=== PATIENT | male | born 1955 | race Caucasian/White ===

== ENCOUNTER 2021-12-30 16:28 | Outpatient (REF) | payer OTHER, SELFPAY ==
[2021-12-30 16:36] LABS: MANUAL DIFF FLAG NO
[2021-12-30 16:58] LABS: Basophils Absolute Auto 0.1 X10*3/uL (0.0-0.2); Basophils Percent Auto 0.8 % (0-2); Eosinophils Absolute Auto 0.3 X10*3/uL (0.0-0.4); Eosinophils Percent Auto 3.5 % (0-4); Hematocrit 45.6 % (42.0-52.0); Hemoglobin 15.2 g/dl (14.0-18.0); Imm Gran Abs Auto 0.02 X10*3/uL (0.00-0.03); Imm Gran Pct Auto 0.3 % (0.0-0.4); Lymphocytes Absolute Auto 1.5 X10*3/uL (1.2-4.9); Lymphocytes Percent Auto 21.2 % (20-40); Mean Corpuscular HGB Conc 33.3 g/dl (31.0-36.0); Mean Corpuscular Hemoglobin 31.7 pg (27.0-33.0); Mean Corpuscular Volume 95.2 fL (80.0-98.0); Mean Platelet Volume 10.6 fL (9.4-12.4); Monocytes Absolute Auto 0.6 X10*3/uL (0.1-1.2); Monocytes Percent Auto 8.6 % (2-11); Neutrophils Absolute Auto 4.7 x10*3/uL (2.0-8.3); Neutrophils Percent Auto 65.6 % (45-73); Platelet Count 277 X10*3/uL (160-400); Red Blood Count 4.79 X10*6/uL (4.60-5.80); Red Cell Distribution Width 12.7 % (11.0-16.0); White Blood Count 7.1 X10*3/uL (4.8-10.8)
[2021-12-30 17:28] LABS: Alanine Aminotransferase 14 U/L (0-40); Albumin Level 4.3 g/dL (3.5-5.0); Alkaline Phosphatase 59 U/L (39-117); Anion Gap 13 (12-20); Aspartate Amino Transferase 20 U/L (5-37); Bilirubin Total 0.7 mg/dL (0.0-1.0); Blood Urea Nitrogen 12 mg/dL (9-16); Calcium 9.1 mg/dL (8.4-10.2); Carbon Dioxide 25 mmol/L (22-29); Chloride 106 mmol/L (96-108); Cholesterol 211 mg/dL; Estimated Glomerular Filt Rate > 60; Glucose Random 107 mg/dL (60-115); HDL Cholesterol 56 mg/dL; LDL Cholesterol Calculated 135 mg/dl; Sodium 140 mmol/L (135-145); Total Protein 7.3 g/dL (6.5-8.0); Triglycerides 101 mg/dL
[2021-12-30 17:51] LABS: PSA,Total (Free>4and<10) 0.74 ng/mL (0.00-4.00)
[2021-12-30 20:53] LABS: Reflex LDLD? No
== END 2021-12-30 16:29 | disposition home or self-care (01) ==
LOC: HO.LNP 16:28
PROVIDERS: Visit Provider Internal Medicine
DX: Z12.5 Encounter for screening for malignant neoplasm of prostate (principal); R10.9 Unspecified abdominal pain; R31.9 Hematuria, unspecified
CPT/HCPCS: 80053; 80061; 84153; 85025

== ENCOUNTER 2022-02-27 08:30 | Outpatient (REF) | payer OTHER, MEDICARE, SELFPAY ==
--- NOTE | ~2022-02-27 | US_ITS ---
EXAMINATION: US ABDOMEN COMPLETE CLINICAL INFORMATION: Liver lesion. COMPARISON: None TECHNIQUE: Real-time imaging of the abdominal viscera. Technically limited study secondary to bowel gas and body habitus. FINDINGS: PANCREAS: Not well visualized due to bowel gas ABDOMINAL AORTA: The proximal and mid abdominal aorta are not well visualized due to bowel gas. The distal abdominal aorta is normal in caliber. INFERIOR VENA CAVA: Visualized portions are normal. LIVER: The liver is normal in size. The liver contour is normal. Liver echotexture is increased. No focal hepatic lesion. There is no intrahepatic biliary duct dilatation seen. GALLBLADDER: The gallbladder is physiologically distended. Multiple gallstones are present. No evidence of gallbladder wall thickening or pericholecystic fluid. COMMON BILE DUCT: Normal in caliber measuring 0.3 cm in diameter. RIGHT KIDNEY: Normal. No hydronephrosis. No renal calculi or focal parenchymal lesions. The kidney measures 11.7 cm in maximum dimension. LEFT KIDNEY: There is a cyst exophytic to the upper pole measuring 3.7 x 2.7 x 3.4 cm. This is some internal echoes that are difficult to clear. This may be artifactual due to body habitus. No hydronephrosis or renal calculi. The kidney measures 12.8 cm in maximum dimension. SPLEEN: Normal. The spleen measures 13.0 cm in maximum dimension. FREE FLUID: None. US/US abdomen complete IMPRESSION: Limited exam. No liver lesion appreciated. Liver echotexture is slightly increased. Gallstones. Left renal cyst. Pancreas and aorta not well visualized.
== END 2022-02-27 08:31 | disposition home or self-care (01) ==
LOC: HO.HMGCX 08:30
PROVIDERS: PCP Internal Medicine; Visit Provider Internal Medicine
DX: K76.9 Liver disease, unspecified (principal)
CPT/HCPCS: 76700

== ENCOUNTER 2023-01-19 11:56 | Outpatient (REF) | payer OTHER, MEDICARE, SELFPAY ==
[2023-01-19 11:58] LABS: MANUAL DIFF FLAG NO
[2023-01-19 12:20] LABS: Basophils Absolute Auto 0.1 X10*3/uL (0.0-0.2); Basophils Percent Auto 0.8 % (0-2); Eosinophils Absolute Auto 0.4 X10*3/uL (0.0-0.4); Hematocrit 44.8 % (42.0-52.0); Hemoglobin 14.8 g/dl (14.0-18.0); Imm Gran Abs Auto 0.03 X10*3/uL (0.00-0.03); Imm Gran Pct Auto 0.5 % (0.0-0.4); Lymphocytes Absolute Auto 1.9 X10*3/uL (1.2-4.9); Lymphocytes Percent Auto 28.9 % (20-40); Mean Platelet Volume 10.9 fL (9.4-12.4); Monocytes Absolute Auto 0.6 X10*3/uL (0.1-1.2); Monocytes Percent Auto 9.2 % (2-11); Neutrophils Absolute Auto 3.6 x10*3/uL (2.0-8.3); Neutrophils Percent Auto 54.6 % (45-73); Platelet Count 249 X10*3/uL (160-400); Red Blood Count 4.62 X10*6/uL (4.60-5.80); Red Cell Distribution Width 12.5 % (11.0-16.0); White Blood Count 6.7 X10*3/uL (4.8-10.8)
[2023-01-19 12:30] LABS: Appearance Urine Clear; Color Urine Yellow; Glucose Urine UA Negative (Negative); Leukocyte Esterase Urine Negative (Negative); Nitrite Urine Negative (Negative); Urine Blood Negative (Negative); Urine Ketones Negative (Negative); Urine Protein Negative (Neg-Trace)
[2023-01-19 12:39] LABS: Bacteria Urine None Seen (None Seen); Hyaline Casts Urine 0-2 /LPF (0-2); RBC Urine 0-2 /HPF (0-2); Squamous Epithelial Cell Urine 0-2 /HPF (0-2); WBC Urine 0-5 /HPF (0-5)
[2023-01-19 13:01] LABS: Alanine Aminotransferase 13 U/L (0-40); Alkaline Phosphatase 55 U/L (39-117); Anion Gap 11 (12-20); Aspartate Amino Transferase 20 U/L (5-37); Bilirubin Total 0.7 mg/dL (0.0-1.0); Blood Urea Nitrogen 14 mg/dL (9-16); Calcium 9.4 mg/dL (8.4-10.2); Carbon Dioxide 25 mmol/L (22-29); Chloride 107 mmol/L (96-108); Cholesterol 169 mg/dL; Estimated Glomerular Filt Rate > 60; Glucose Fasting 105 mg/dL (60-99); HDL Cholesterol 49 mg/dL; LDL Cholesterol Calculated 106 mg/dl; Potassium 3.7 mmol/L (3.3-5.1); Sodium 139 mmol/L (135-145); Triglycerides 72 mg/dL
[2023-01-19 13:17] LABS: PSA,Total (Free>4and<10) 0.77 ng/mL (0.00-4.00)
== END 2023-01-19 11:57 | disposition home or self-care (01) ==
LOC: HO.LNP 11:56
PROVIDERS: Visit Provider Internal Medicine
DX: Z00.00 Encounter for general adult medical examination without abnormal findings (principal); Z12.5 Encounter for screening for malignant neoplasm of prostate; N40.0 Benign prostatic hyperplasia without lower urinary tract symptoms; K76.9 Liver disease, unspecified
CPT/HCPCS: 80053; 80061; 81001; 84153; 85025

== ENCOUNTER 2023-07-29 15:40 | Outpatient (REF) | payer OTHER, MEDICARE, SELFPAY ==
--- NOTE | ~2023-07-29 | XR_ITS ---
EXAMINATION: XR CHEST 2 VIEWS CLINICAL INFORMATION: Dysphonia. COMPARISON: None. TECHNIQUE: Frontal and lateral views of the chest were obtained. FINDINGS: The heart, great vessels, pulmonary vasculature and mediastinum are normal. The thoracic aorta is tortuous. The lungs show no focal infiltrate, effusion or pneumothorax. There is no acute osseous abnormality. XR/XR chest 2V IMPRESSION: No active cardiopulmonary disease.
== END 2023-07-29 15:41 | disposition home or self-care (01) ==
LOC: HO.XRAY 15:40
PROVIDERS: PCP Internal Medicine; Visit Provider Internal Medicine
DX: R49.0 Dysphonia (principal)
CPT/HCPCS: 71046

== ENCOUNTER 2023-09-03 15:54 | Outpatient (REF) | payer OTHER, MEDICARE, SELFPAY ==
[2023-09-03 16:13] LABS: Blood Urea Nitrogen 12 mg/dL (9-16); Estimated Glomerular Filt Rate > 60
== END 2023-09-03 15:55 | disposition home or self-care (01) ==
LOC: HO.LNP 15:54
PROVIDERS: Visit Provider Internal Medicine
DX: Z01.812 Encounter for preprocedural laboratory examination (principal)
CPT/HCPCS: 82565; 84520

== ENCOUNTER 2024-01-21 10:30 | Outpatient (REF) | payer OTHER, MEDICARE, SELFPAY ==
[2024-01-21 10:32] LABS: MANUAL DIFF FLAG NO
[2024-01-21 10:42] LABS: Basophils Absolute Auto 0.1 X10*3/uL (0.0-0.2); Eosinophils Absolute Auto 0.3 X10*3/uL (0.0-0.4); Eosinophils Percent Auto 4.3 % (0-4); Hematocrit 45.2 % (42.0-52.0); Hemoglobin 15.4 g/dl (14.0-18.0); Imm Gran Abs Auto 0.02 X10*3/uL (0.00-0.03); Imm Gran Pct Auto 0.3 % (0.0-0.4); Lymphocytes Absolute Auto 1.9 X10*3/uL (1.2-4.9); Lymphocytes Percent Auto 28.6 % (20-40); Mean Corpuscular HGB Conc 34.1 g/dl (31.0-36.0); Mean Corpuscular Volume 96.8 fL (80.0-98.0); Mean Platelet Volume 10.8 fL (9.4-12.4); Monocytes Absolute Auto 0.6 X10*3/uL (0.1-1.2); Monocytes Percent Auto 8.6 % (2-11); Neutrophils Absolute Auto 3.8 x10*3/uL (2.0-8.3); Neutrophils Percent Auto 57.2 % (45-73); Platelet Count 269 X10*3/uL (160-400); Red Blood Count 4.67 X10*6/uL (4.60-5.80); Red Cell Distribution Width 12.6 % (11.0-16.0); White Blood Count 6.7 X10*3/uL (4.8-10.8)
[2024-01-21 10:43] LABS: Appearance Urine Clear; Color Urine Yellow; Glucose Urine UA Negative (Negative); Leukocyte Esterase Urine Negative (Negative); Nitrite Urine Negative (Negative); PH 5.5 (5.0-9.0); UMIC TRIGGER UACC YES; Urine Blood Moderate (2+) (Negative); Urine Ketones Negative (Negative); Urine Protein Negative (Neg-Trace)
[2024-01-21 10:45] LABS: Bacteria Urine None Seen (None Seen); Hyaline Casts Urine 0-2 /LPF (0-2); RBC Urine >20 /HPF (0-2); Squamous Epithelial Cell Urine 0-2 /HPF (0-2); WBC Urine 0-5 /HPF (0-5)
[2024-01-21 20:22] LABS: Alanine Aminotransferase 11 U/L (0-40); Albumin Level 4.3 g/dL (3.5-5.0); Alkaline Phosphatase 59 U/L (39-117); Anion Gap 15 (12-20); Aspartate Amino Transferase 21 U/L (5-37); Bilirubin Total 0.7 mg/dL (0.0-1.0); Blood Urea Nitrogen 15 mg/dL (9-16); Calcium 9.3 mg/dL (8.4-10.2); Carbon Dioxide 22 mmol/L (22-29); Chloride 108 mmol/L (96-108); Cholesterol 185 mg/dL (<200); Estimated Glomerular Filt Rate > 60; Glucose Fasting 100 mg/dL (60-99); HDL Cholesterol 51 mg/dL (>40); LDL Cholesterol Calculated 117 mg/dL (<100); Potassium 3.7 mmol/L (3.3-5.1); Sodium 141 mmol/L (135-145); Total Protein 7.1 g/dL (6.5-8.0); Triglycerides 87 mg/dL (<150)
[2024-01-22 01:58] LABS: PSA,Total (Free>4and<10) 0.86 ng/mL (0.00-4.00)
== END 2024-01-21 10:31 | disposition home or self-care (01) ==
LOC: HO.LNP 10:30
PROVIDERS: Visit Provider Internal Medicine
DX: Z00.00 Encounter for general adult medical examination without abnormal findings (principal); N40.0 Benign prostatic hyperplasia without lower urinary tract symptoms; K76.9 Liver disease, unspecified; Z12.5 Encounter for screening for malignant neoplasm of prostate
CPT/HCPCS: 80053; 80061; 81001; 84153; 85025

== ENCOUNTER 2024-01-31 09:49 | Outpatient (REF) | payer OTHER, MEDICARE, SELFPAY ==
--- NOTE | ~2024-01-31 | FL_ITS ---
EXAMINATION: XR FLUOROSCOPY UPPER GI WITH AIR CLINICAL INFORMATION: Reflux. Dysphagia. COMPARISON: None. TECHNIQUE: Fluoroscopic air contrast upper GI examination was performed utilizing standard techniques with thin and thick barium and effervescent granules. Numerous spot images were obtained. FINDINGS: Lateral cine images of the oropharynx and hypopharynx demonstrate normal swallow mechanism with normal epiglottic inversion and soft palate elevation. No tracheal penetration, glottic or subglottic aspiration identified. No nasopharyngeal reflux present. A small Zenker's diverticulum is present. There is moderate cricopharyngeal achalasia present. Dual and single contrast images of the esophagus demonstrate normal caliber, contour, and mucosal pattern. No mass, or ulcerations are identified. Esophageal peristalsis is mildly disorganized. There is mild to moderate smooth narrowing of the GE junction. A small to moderate-sized type I hiatal hernia is present. Gastroesophageal reflux is seen up to the midesophagus. Dual contrast and single contrast images of the stomach demonstrated a normal contour. The gastric rugal folds are mildly thickened appearance. There are multiple tiny foci of contrast pooling in the body of the stomach that may present small superficial aphthous ulcers. No masses are seen. Contrast freely passed into the gastric antrum and duodenal bulb without delay. Single and air-contrast images of the duodenal bulb demonstrate no abnormality. The duodenal sweep has a normal appearance, course, and mucosal fold appearance. The imaged proximal jejunum has a normal fold pattern and caliber. FLUOROSCOPY TIME: 3 minutes 22 seconds Number of Spot Images: 8 Number of Cine: 14 DOSE AREA PRODUCT: 3621 uGy-m2 (microgray-meter squared) FL/FL upper GI w air IMPRESSION: 1. Moderate cricopharyngeal achalasia. 2. Small Zenker's diverticulum. 3. Mildly disorganized esophageal peristalsis 4. Mild to moderate narrowing of the GE junction that may represent achalasia or a benign stricture. 5. Moderate-sized type I hiatal hernia with moderate gastroesophageal reflux. 6. Mildly thickened appearance the gastric rugal folds. In addition there are multiple tiny foci of contrast pooling in the body of the stomach. These findings are suggestive of erosive gastritis. Recommend correlation with EGD. This procedure was performed by Colt Garcia PA-C, and supervised by Dr. Martinez
== END 2024-01-31 09:50 | disposition home or self-care (01) ==
LOC: HO.XRAY 09:49
PROVIDERS: PCP Internal Medicine; Visit Provider Internal Medicine
DX: K21.9 Gastro-esophageal reflux disease without esophagitis (principal)
CPT/HCPCS: 74246

== ENCOUNTER → 2024-01-31 09:54 | Outpatient (BNV) | payer OTHER, MEDICARE, SELFPAY | PROVIDERS: PCP Internal Medicine; Visit Provider Physician Assistant Surgical | DX: R13.10 Dysphagia, unspecified (principal) | CPT/HCPCS: 74246 ==

== ENCOUNTER 2025-01-01 08:10 | Day surgery (SDC) | payer OTHER, SELFPAY ==
--- OUTSIDE RECORDS SUMMARY | 2024-11-30 11:07 | XMS_ITS ---
Author Organization Chad Kohli MD Address [address] [place], [place] [id number] Care Team Providers Care Technical Operations Specialist Name Role Phone Chad Kohli Primary Care [...] Problem Status W/U Status Risk Notes Problem [id number] Gastroesophageal reflux disease without esophagitis (K21.9) Active confirmed Vital Signs Blood pressure systolic 112 mm Hg 06/05/20 24 Blood pressure diastolic 60 mm Hg 024 Height 71 in 06/05/2024 Weight 266 lbs 06/05/2024 BMI 37.10 kg/m2 06/05/2024 Encounters Encounter Location Date Provider Diagnosis Chad Kohli MD [address] [place] [phone] 06/05/2024 Chad Kohli Gastroesophageal ref lux disease [...] Details Follow Up: 2 Months, Reason: Provider Name:hCad moore, 01/25/2025 07:00:00 AM, [address] [place] [address], [address], [phone], Provider Name:Chad moore, 02/01/2025 01:00:00 PM, [address] [place] [address], [place] [address], [place], [place], [phone], Progress Notes * FANNY NUNESDOB:1955 (69 yo M)Acc No.[id number]:06/05/2024 Progress Notes Patient:?FANNY NUNES Provider:?Chad Kohli MD :1955???Age:69 Y???Sex:Male Levy e:06/05/2024 Address: [address], [place] Subjective: * Chief Complaints: * ???3 month * HPI: ???Symptom(s):? patient is a 69 yo male here for 3 month follow uu visit, here for follow up of voice problems. * ROS:?General/Constitutional:?Denies?Chills.?Denies?Fatigue.?Denies?Fever.?Denies?Headache.?ENT:?Patient denies?decreased sense of smell , any loss of taste , sore throat.?Denies?Sore throat.?Respiratory:?Denies?Cough.?Denies?Shortness of breath at rest.?Denies?Shortness of breath with exertion.?Gastrointestinal:?Denies?Diarrhea.?Denies?Nausea.?Musculoskeletal:?Patient denies?muscle aches.?Peripheral Vascular:?Patient denies?red and blue toes.? * Medical History:? * Surgical History:? * Hospitalization/Major Diagno stic Procedure:? * Medications:?Not-Taking/PRNF luticasone Propionate 50 MCG/ACT Suspension 1 spray in [...] reviewed and reconciled with the patient * Allergies:?N.K.D.A.yes[Aller gies Verified] Objective: * Vitals:?Ht: 71, Wt:266, BMI: 37.10, BP:112/60. * Examination: ???General Examination: ?GENERAL APPEARANCE:?alert, well hydrated, in no distress , male.?HEAD:?normocephalic.?NECK/THYROID:?no thyroid nodules no palpable thyroglssal duct cyst.?SKIN:?good turgor.?HEART:?no murmurs, rubs, gallops , regular rate and rhythm.?LUNGS:?good air movement , clear to auscultation bilaterally.? Assessment: * Assessment: 1.?Gastroesophageal reflux d isease without esophagitis - K21.9 (Primary)?2.?Disorder of voice - R49.9? Plan: * Treatment: 2.?Disorder of voice? Notes: seems as though it may be related to reflux?? * Procedure Codes:? * Follow Up:?2 Months * * Sign off status: Completed true * Provider:?Chad Kohli MD Date:?1 08/06/2023 Generated for Kereni michael/Fatimah/eTransmitting on:?11/30/2024 11:07 AM EDT History and Physical Notes * [...]
[2024-12-28 14:21] VITALS: BMI 35.3
--- NOTE | 2024-12-29 10:54 | P.CONAN_ITS ---
Documented by User: Mayra Webb NP 12/29/24 10:55 HPI - Anesthesia Eval Consult details Narrative: 69yo M for Upper Endoscopy and Colonoscopy [facility] Past Medical History Medical History Gallstones Surgical History Surgical History Hx of tonsillectomy Social History Social History Are you a primary patient centered care specialist to a significant other at home: No Do you presently have visiting nurse or other home services: No Patient Tobacco Use Status: Former Tobacco user Use of substances other than those prescribed or required for medical reasons: No Have you been hit, kicked, punched, or otherwise hurt by someone within the past year? If so, by whom?: No Are you DNR?: No Advance Directives: No Advance Directives Information Provided: Yes Poor oral hygiene: No Meds Allergies Allergy/AdvReac Type Severity Reaction Status Date / Time mite-Dermatophagoides Allergy Unknown Verified 01/01/25 08:41 farinae, katey (dust mite - [place]) pollen extracts Allergy Unknown Verified 01/01/25 08:41 Home Medications ?Medication ?Instructions ?Recorded ?Confirmed ?Last Taken ?Type No Known Home Meds 12/28/24 12/28/24 Un known History Exam Height,Weight and Vital Signs: Height 6 ft Weight 117.934 kg Assessment and Plan Assessment Anesthesia Assessment: Chart Reviewed Documented by User: Tyrell Alves MD 01/01/25 09:58 [facility] Past Medical History Medical History Gallstones Functional capacity: independent ambulation Family History Family history of problems with anesthesia: No Surgical History Surgical History Hx of tonsillectomy History of Problems with Anesthesia: No Social History Social History Are you a primary patient centered care specialist to a significant other at home: No Do you presently have visiting nurse or other home services: No Patient Tobacco Use Status: Former Tobacco user Use of substances other than those prescribed or required for medical reasons: No Have you been hit, kicked, punched, or otherwise hurt by someone within the past year? If so, by whom?: No Are you DNR?: No Advance Directives: No Advance Directives Information Provided: Yes Poor oral hygiene: No Meds Allergies Allergy/AdvReac Type Severity Reaction Status Date / Time mite-Dermatophagoides Allergy Unknown Verified 01/01/25 08:41 farinae, katey (dust mite - [place]) pollen extracts Allergy Unknown Verified 01/01/25 08:41 Home Medications ?Medication ?Instructions ?Recorded ?Confirmed ?Last Taken ?Type No Known Home Meds 12/28/24 12/28/24 Un known History Exam Exam Date and Time: 01/01/2025 Airway TM Dist: >3cm Neck ROM: Full Loose/Missing/Broken Teeth: No Heart: rrr Lungs: cta Assessment and Plan Final Anesthetic Review Family History of Problems with Anesthesia: No History of Problems with Anesthesia: No NPO: Yes ASA Class: II Final Preanesthetic Review: No Changes in Pt Med Stat, Meds/Allgs Chart Reviewed, Consent Obtained/Reviewed and Anes Risks/Benef Reviewed Patient Risk: Low Procedure Risk: Low Anesthetic Plan Anesthetic Plan: MAC: Disposition: Standard PACU
[2025-01-01 08:46] VITALS: BP 110/71; PULSE 81; RESP 12; TEMP 36.6; O2SAT 97; BMI 34.4
[2025-01-01] MEDS: Lactated Ringers 1,000 ML 100 ML IVCONT (08:50)
[2025-01-01 11:05] VITALS: BP 116/80; PULSE 57; RESP 16; TEMP 36.1; O2SAT 96
--- NOTE | 2025-01-01 11:12 | P.BOP_ITS ---
Brief Operative Note Date of Service: 01/01/25 Pre-op diagnosis: GERD, Screening Post-op diagnosis: other (Hiatal hernia, GERD, Gastritis, Duodenitis, Colon polyps) Procedure: EGd with bx, Colonoscopy to the cecum and TI with hot snare polypectomy at 20cm, bx/removal of polyp at 15cm, and cold snare polypectomies at Transverse colon and 70cm Surgeon: Kelby Srivastava MD Was an Employee Representative used for this Procedure?: No Estimated blood loss (mL): 2.0 Pathology: other (A. Gastric antrum B. EG Junction at 35cm C. Transverse colon polyp D. Polyp at 70cm E. Polyp at 20cm F. Polyp at 15cm) Condition: stable Disposition: PACU
[2025-01-01 11:20] VITALS: BP 120/69; PULSE 56; RESP 16; TEMP 36.1; O2SAT 98
--- NOTE | 2025-01-01 11:48 | OP_ITS ---
DATE OF SERVICE: 01/01/2025 SURGEON: Kelby Srivastava MD INDICATIONS: The patient presents for evaluation of gastroesophageal reflux and colorectal cancer screening. Full consent obtained from him for both procedures, including risks of bleeding and perforation. PREOPERATIVE DIAGNOSIS: POSTOPERATIVE DIAGNOSIS: PROCEDURE PERFORMED: Esophagogastroduodenoscopy with biopsies, and colonoscopy to cecum with hot snare polypectomy, cold snare polypectomy x2, and biopsy removal of polyp. ESTIMATED BLOOD LOSS: COMPLICATIONS: ANESTHESIA: Monitored anesthesia care. ASSISTANTS: SPECIMENS: PREOPERATIVE DIAGNOSES: Gastroesophageal reflux and colorectal cancer screening. POSTOPERATIVE DIAGNOSES: Gastroesophageal reflux and colorectal cancer screening, hiatal hernia, duodenitis, gastritis, gastroesophageal reflux, and rule out Salter esophagus, colon polyps, diverticulosis, and internal hemorrhoids. DESCRIPTION OF PROCEDURE: The patient was placed in the left lateral decubitus position. The Olympus video gastroscope was passed in the posterior oropharynx and upper esophagus under direct vision. The scope was passed slowly to the distal esophagus. The gastroesophageal junction appeared at 35 cm. This area was slightly irregular with some erythema and edema. There were no signs of esophagitis. There was no definitive Salter's mucosa. There were no lesions. The scope entered the stomach. There was a moderate-sized hiatal hernia. The scope was advanced to the pylorus. The duodenum was cannulated to the descending portion. The duodenum including the bulb was carefully inspected. The duodenal bulb had areas of erosions and edema. There was no ulceration or mass. The scope was withdrawn back to the stomach. The gastric antrum and body had evidence of gastritis with some erythema, edema, and friability. There was good peristalsis. Biopsies were obtained from the antrum. The scope was retroflexed visualizing the proximal stomach carefully, which appeared normal, without any sign of mass or ulceration. The scope was straightened and withdrawn back to the esophagus. Multiple biopsies were obtained at the EG junction at 35 cm. Proximal to this, the esophageal mucosa appeared normal. The scope was withdrawn from the patient. He was turned around for the colonoscopy. The digital rectal exam revealed no abnormalities. The Olympus video pediatric colonoscope was entered into the rectum and advanced easily to the cecum. Once in the cecum, I identified the appendiceal orifice and normal-appearing ileocecal valve. The terminal ileum was cannulated and appeared normal. The scope withdrawn back in the colon. The entire cecum and ileocecal valve appeared normal. The scope was then slowly withdrawn assessing all mucosal surfaces carefully. Preparation was excellent. In the transverse colon an approximately 6 mm polyp was removed by cold snare polypectomy and recovered by suction. The polypectomy site appeared clean, without any sign of residual polyp nor significant bleeding. At 70 cm was an approximately 5 mm polyp which was removed by cold snare polypectomy and recovered by suction. The polypectomy site appeared clean, without any sign of residual polyp nor bleeding. At 20 cm, an approximately 10 to 12 mm polyp was removed by hot snare polypectomy and then recovered by withdrawing on the tip of the scope. The scope was advanced back to the polypectomy site, which appeared clean, without any sign of residual polyp nor bleeding. At 15 cm was an approximately 5 mm polyp, which was biopsied and removed with cold biopsy forceps. I did not visualize any other polyps, colitis, nor angiodysplasia. There was a mild amount of sigmoid diverticulosis. In the rectum, scope was retroflexed visualizing internal hemorrhoids, but no other pathology. The rectal mucosa appeared normal. The scope was straightened and withdrawn from the patient. He tolerated both procedures well and was returned to recovery area in stable condition. IMPRESSION: 1. Colon polyps. 2. Diverticulosis. 3. Internal hemorrhoids. 4. Hiatal hernia, gastroesophageal reflux, rule out Salter's esophagus. 5. Gastritis, rule out Helicobacter pylori. 6. Duodenitis. PLAN: The results of the pathology will be checked. If the colon polyps are tubular adenomas I would recommend a followup coloscopy in 5 years. He was advised not to use any aspirin and NSAIDs for at least a week. Given the upper endoscopy findings, although he does not really describe much in the way of reflux, I shall restart him on a PPI, but use omeprazole 40 mg daily. He had apparently been on 20 mg daily in the past without much improvement in regard to the symptoms he has been having with his voice. We will see if the higher dose might work better for him. He will be seen in followup as well. If there is Salter's esophagus, I would recommend a repeat upper endoscopy in 3 years as long as there is no dysplasia. Again, he has been advised not to use any aspirin nor NSAIDs for least a week. MD IDANIA Madrid/FAYE / [id number] SIENA
== END 2025-01-01 11:44 | disposition home or self-care (01) ==
PROVIDERS: PCP Internal Medicine; Visit Provider Internal Medicine
PROC: (CPT 45385; principal; 2025-01-01 09:30)
DX: Z12.11 Encounter for screening for malignant neoplasm of colon (principal); D12.3 Benign neoplasm of transverse colon; D12.4 Benign neoplasm of descending colon; D12.5 Benign neoplasm of sigmoid colon; K62.1 Rectal polyp; K57.30 Diverticulosis of large intestine without perforation or abscess without bleeding; K64.8 Other hemorrhoids; K21.9 Gastro-esophageal reflux disease without esophagitis; K44.9 Diaphragmatic hernia without obstruction or gangrene; K29.80 Duodenitis without bleeding; K29.60 Other gastritis without bleeding; K22.89 Other specified disease of esophagus; Z87.891 Personal history of nicotine dependence
CPT/HCPCS: 45385; 45380; 43239; 88305; 88313; 88342; J2003; J2704; J3010

== ENCOUNTER 2025-01-25 10:25 | Outpatient (REF) | payer OTHER, SELFPAY ==
--- OUTSIDE RECORDS SUMMARY | 2024-06-05 06:00 | XMS_ITS ---
Author Organization Chad Kohli MD Address [address] [place], [place] [id number] Care Team Providers Care Local Company Flatbed Truck Driver Name Role Phone Chad Kohli Primary Care Provider Allergies No Known Allergies Reason For Referral Reason Needs Upper and lowe r endoscopy Diagnosis 1 Gastroesophageal ref lux disease without esophagitis (K21.9) Referral Organization Chad Kohli MD Referring Provider First Name Chad Referring Provider Last Name Kamilla Referring Provider Speciality Internal M edicine Referred Provider Kelby Guaman Referred Provider Specialty Gastroentero logy General Notes Trudy Atkins 10:38:12 AM EST > info faxed , Trudy Atkins 06/16/2024 02:57:02 PM EST >referral mailed to patient with letter Referral Priority Routine Referral Appointment Date 09/27/2024 REASON FOR VISIT 3 month Medications Medication SIG (Take, Route, Frequency, Duration) Notes Start Date End Date Status Pantoprazole Sodium 40 MG 1 tablet Orall y Once a day for 30 days 06/05/2024 Active Omeprazole 20 MG 1 capsule 30 minutes before morning meal Orally Once a day for 30 day(s) 09/13/2023 Not-Taking Fluticasone Propionate 50 MCG/ACT 1 spray in each nostril Nasally Once a day for 30 day(s) 01/28/2024 Not-Taking Problems Problem Type SNOMED Code ICD Code Onset Dates Problem Status W/U Status Risk Notes Problem [id number] Gastroesophageal reflux disease without esophagitis (K21.9) Active confirmed Vital Signs Blood pressure systolic 112 mm Hg 06/05/20 24 Blood pressure diastolic 60 mm Hg 024 Height 71 in 06/05/2024 Weight 266 lbs 06/05/2024 BMI 37.10 kg/m2 06/05/2024 Encounters Encounter Location Date Provider Diagnosis Chad Kohli MD [address] [place] [address] Drive [address] [place], [place] [phone] 06/05/2024 Chad Kohli Gastroesophageal ref lux disease without esophagitis K21.9 and Disorder of voice R49.9 Assessments Encounter Date Diagnosis (ICD Code) Assessment Notes Treatment Notes Treatment Clinical Notes Section Notes 06/05/2024 Gastroesophageal reflux disease without esophagitis (ICD-10 - K21.9) patient verbalized understandingof medication and directions for use, referral to dr guaman or aris/ needs upper and lower endoscopy 06/05/2024 Disorder of voice (ICD-10 - R49.9) seems as though it may be related to reflux Plan Of Treatment Medication Medication Name Sig Start Date Stop Date Notes Pantoprazole Sodium 40 MG 1 tablet Orall y Once a day for 30 days 06/05/2024 Treatment Notes Assessment Notes Gastroesophageal reflux dise ase without esophagitis patient verbalized understandingof medication and directions for use, referral to dr gumaan or aris/ needs upper and lower endoscopy Disorder of voice seems as though it m ay be related to reflux Referrals Referral Date Details 06/05/2024 06/05/2024, Needs Up per and lower endoscopy , Kelby Guaman Next Appt Details Follow Up: 2 Months, Reason: Provider Name:Chad Martinez ier, 02/01/2025 01:00:00 PM, [address] [place] [address], [address], [place], [place], [phone], Progress Notes * DES FANNYDOB:1955 (69 yo M)Acc No.[id number]:06/05/2024 Progress Notes Patient: FANNY HOLT Provider: Desmond Kohli MD :1955 A ge:69 Y S ex:Male Date:06/05/2024 Address[address] Subjective: * Chief Complaints: * 3 month * HPI: S ymptom(s): patient is a 69 yo male here for 3 month follow uu visit, here for follow up of voice problems. * ROS: G eneral/Constitutional: Denies C hills. D enies F atigue. D enies F ever. D enies H eadache. E NT: Patient denies d ecreased sense of smell , any loss of taste , sore throat. D enies S ore throat. R espiratory: Denies C ough. D enies S hortness of breath at rest. D enies S hortness of breath with exertion. G astrointestinal: Denies D iarrhea. D enies N ausea. M usculoskeletal: Patient denies m uscle aches. P eripheral Vascular: Patient denies r ed and blue toes. * Medical History: * Surgical History: * Hospitalization/Major Diagno stic Procedure: * Medications: N ot-Taking/PRNFluticasone Propionate 50 MCG/ACT Suspension 1 spray in each nostril Nasally Once a dayOmeprazole 20 MG Capsule Delayed Release 1 capsule 30 minutes before morning meal Orally Once a dayMedication List reviewed and reconciled with the patientNot-Taking/PRN Fluticasone Propionate 50 MCG/ACT Suspension 1 spray in each nostril Nasally Once a dayNot-Taking/PRN Omeprazole 20 MG Capsule Delayed Release 1 capsule 30 minutes before morning meal Orally Once a dayMedication List reviewed and reconciled with the patient * Allergies: N .K.D.A.yes[Allergies Verified] Objective: * Vitals: H t: 71, Wt:266, BMI:37.10, BP:112/60. * Examination: G eneral Examination: GENERAL APPEARANCE: a lert, well hydrated, in no distress , male. HEAD: n ormocephalic. NECK/THYROID: n o thyroid nodules no palpable thyroglssal duct cyst. SKIN: g ood turgor. HEART: n o murmurs, rubs, gallops , regular rate and rhythm. LUNGS: g ood air movement , clear to auscultation bilaterally. Assessment: * Assessment: 1. G astroesophageal reflux disease without esophagitis - K21.9 (Primary) 2 . D isorder of voice - R49.9 Plan: * Treatment: 2. D isorder of voice Notes: seems as though it may be related to reflux * Procedure Codes: * Follow Up: 2 Months * * Sign off status: Completed true * Provider: Desmond Kohli MD Date: 08/06/2023 Generated for Kereni michael/Fatimah/Antonioitting on: 0 01/25/2025 11:15 AM EDT History and Physical Notes * HPI (History of Present Illness) Category Sub-Category Detail Notes Category Not es Symptom(s) patient is a 69 yo male here for 3 month follow uu visit, here for follow up of voice problems Examination Category Sub-Category Detail Notes Category Not es General Examination GENERAL APPEARANCE: alert, w ell hydrated, in no distress , male HEAD: normocephalic NECK/THYROID: no thyroid nodules n o palpable thyroglssal duct cyst HEART: no murmurs, rubs, ga llops , regular rate and rhythm LUNGS: good air movement , clear to auscultation bilaterally SKIN: good turgor Consultation Request Notes Referral Date Referring Provider Referred Provider Not es 06/05/2024 Chad Kohli [place] Needs Uppe r and lower endoscopy
--- OUTSIDE RECORDS SUMMARY | 2025-01-01 05:30 | XMS_ITS ---
Author Organization [facility] Address [address] [place] [address] Care Team Providers Care Trailer Mechanic Name Role Phone Chad Kohli MD Primary Care Provider Kelby Chadwick [phone] REASON FOR VISIT screening,gerd Encounters Encounter Location Date Provider Diagnosis [facility] [address] [place], [place] [phone] 01/01/2025 Kelby Srivastava Colon cancer scree atul Z12.11 ; Colon polyps K63.5 ; Diverticulosis of large intestine without perforation or abscess without bleeding K57.30 ; Other hemorrhoids K64.8 ; Gastro-esophageal reflux disease without esophagitis K21.9 ; Chronic gastritis K29.50 ; Hiatal hernia K44.9 and Duodenitis K29.80 Assessments Encounter Date Diagnosis (ICD Code) Assessment Notes Treatment Notes Treatment Clinical Notes Section Notes 01/01/2025 Colon cancer screening (ICD-10 - Z12.11) 01/01/2025 Colon polyps (ICD-10 - K63.5) 01/01/2025 Diverticulosis of large intestine without perforation or abscess without bleeding (ICD-10 - K57.30) 01/01/2025 Other hemorrhoids (ICD-10 - K64.8) 01/01/2025 Gastro-esophageal reflux disease without esophagitis (ICD-10 - K21.9) 01/01/2025 Chronic gastritis (ICD-10 - K29.50) 01/01/2025 Hiatal hernia (ICD-10 - K44.9) 01/01/2025 Duodenitis (ICD-10 - K29.80) Plan Of Treatment Next Appt Details Provider Name:Kelby Srivastava , 05/04/2025 01:40:00 PM, [address], [address], [place], [address], Progress Notes * FANNY NUNESDOB:1955 (69 yo M)Acc No.[id number]:01/01/2025 EGD and COL/MAC Patient: FANNY HOLT Provider: [place] Srivastava MD :1955 A ge:69 Y S ex:Male Date:01/01/2025 Address:[address] Pcp:Chad Kohli MD Subjective: * Chief Complaints: * 1 . Screening,gerd. * Medical History: Objective: * Vitals: Assessment: * Assessment: 1. C olon cancer screening - Z12.11 (Primary) 2 . C olon polyps - K63.5? 3. D iverticulosis of large intestine without perforation or abscess without bleeding - K57.30 4 . O ther hemorrhoids - K64.8 5 . G billy-esophageal reflux disease without esophagitis - K21.9 6 . C hronic gastritis - K29.50 7 . H iatal hernia - K44.9 8 . D uodenitis - K29.80 ? Plan: * Treatment: * Procedure Codes: 4 5385 LESION REMOVAL COLONOSCOPY, Modifiers: [place] , [address] COLONOSCOPY AND BIOPSY, Modifiers: 59 , 87779 UPPER GI ENDOSCOPY, BIOPSY * * The named appointment provid er may or may not be the originator of this progress note, and it is not deemed complete until electronically signed by the appointment provider. Sign off status: Pending * Provider: [place] Srivastava MD Date: 0 01/01/2025 Generated for Ngoc rodriguez/Fatimah/Venkatsmitting on: 0 01/25/2025 11:15 AM EDT
[2025-01-25 10:30] LABS: MANUAL DIFF FLAG NO
[2025-01-25 10:33] LABS: Hematocrit 43.2 % (42.0-52.0); Hemoglobin 14.8 g/dl (14.0-18.0); Imm Gran Abs Auto 0.02 X10*3/uL (0.00-0.03); Imm Gran Pct Auto 0.3 % (0.0-0.4); Lymphocytes Absolute Auto 1.7 X10*3/uL (1.2-4.9); Mean Corpuscular HGB Conc 34.3 g/dl (31.0-36.0); Mean Corpuscular Hemoglobin 32.8 pg (27.0-33.0); Mean Corpuscular Volume 95.8 fL (80.0-98.0); NRBC Abs Auto 0.000 X10*3/uL (0.0-0.012); NRBC Pct Auto 0.0 /100WBC (0.0-0.2); Platelet Count 267 X10*3/uL (160-400); Red Blood Count 4.51 X10*6/uL (4.60-5.80); White Blood Count 7.1 X10*3/uL (4.8-10.8)
[2025-01-25 10:43] LABS: Appearance Urine Clear; Glucose Urine UA Negative (Negative); PH 5.5 (5.0-9.0); Specific Gravity - Urine 1.020 (1.005-1.025); UMIC TRIGGER UACC YES
[2025-01-25 11:13] LABS: Alanine Aminotransferase 22 U/L (0-40); Albumin Level 4.4 g/dL (3.5-5.0); Alkaline Phosphatase 59 U/L (39-117); Anion Gap 13 (12-20); Aspartate Amino Transferase 30 U/L (5-37); Blood Urea Nitrogen 14 mg/dL (9-16); Calcium 9.2 mg/dL (8.4-10.2); Carbon Dioxide 24 mmol/L (22-29); Chloride 108 mmol/L (96-108); Cholesterol 182 mg/dL (<200); Estimated Glomerular Filt Rate > 60; HDL Cholesterol 51 mg/dL (>40); Potassium 3.8 mmol/L (3.3-5.1); Sodium 141 mmol/L (135-145); Total Protein 6.9 g/dL (6.5-8.0); Triglycerides 117 mg/dL (<150)
--- OUTSIDE RECORDS SUMMARY | 2025-01-25 11:16 | XMS_ITS | Data Portability ---
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 Dysphonia. Exam is stable from previous. He declined to proceed with voice therapy. Reflux is likely a contributing factor. Given findings on his swallow study over the summer, I have recommended GI evaluation for EGD. 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 It is not palpable. I reordered the US. If no change on upcoming US, would not recommend further imaging unless it becomes palpable or symptomatic. 3. Nasal polyps. Not symptomatic. Relative contraindication for steroids. He can use saline. [email or web address] Not available 05/27/2024 09:27:42 Plan of Treatment Reminders Order Date Submit Date Provider Last Modified By Organization Details Last Modified Time Details Appointments None recor ded. Lab None recor ded. Referral gastr oente rolog ist refer ral - Refer ral for Gastr oesop hagea l reflu x disea se witho jen barton Thank you. [address] [facility], [address] [place] [address] Dr, [address] [place], [place], [address], 16:09:09 Procedures None recor ded. Surgeries None recor ded. Imaging US, neck, soft tissu e 2023 024 [email or web address] [facility], [address] [facility], [facility] [address], [place], [address], 09:32:13 Medication Orders None recor ded. Patient TargetsNo targets recorded. Patient InstructionsNo instructions recorded. Reason for Referral Translator Deaf Referral for Gastroesophageal reflux disease without esophagitis Referral for Gastroesophageal reflux disease without esophagitis. Thank you. Referring Physician: Manuel Falcon, Otolaryngology, Encounter Date: 05/26/2024 Results Created Date Observation Date Name Description Value Unit Range Abnormal Flag Note LastModifiedBy Organization Detail LastModifiedTime 04/28/20 24 01/31/2024 fluor oscop y (PROC ) No observ ation record ed. [email or web address] [place] [address] (Medical Records) [address] [place], [address], 05/01/2024 14:16:30 06/22/20 24 06/21/2024 US, neck, soft tissu e No observ ation record ed. [email or web address] [facility] [address] [address], [place], [address], 07/11/2024 10:48:37 Result Notes None recorded. Problems Name Problem SNOMED Code Status Onset Date Resolution Date Notes Provider Name and Address Organization Details Recorded Time Mass of neck 345066230 Active 2023 Localized swelling, mass and lump, neck; Note: Date Diagnosed: 09/24/2023 5:10 PM (R22.1) Not Available [facility] 4 02:21:47 Neck swelling 963686386 Active 2023 Localized swelling, mass and lump, neck; Note: Date Diagnosed: 09/24/2023 5:10 PM (R22.1) Not Available [facility] 4 02:21:47 Polyp of nasal cavity and/or nasal sinus 275231095 Active 2023 Nasal polyp, unspecifie d; Note: Date Diagnosed: 09/24/2023 5:10 PM (J33.9) Not Available [facility] 4 02:22:04 Dysphonia 80447420 Active 2023 Dysphonia; Note: Date Diagnosed: 09/24/2023 5:10 PM (R49.0) Not Available [facility] 4 02:22:18 Gastroeso phageal reflux disease without esophagit is 975237778 Active 2023 Gastro-eso phageal reflux disease without esophagiti s; Note: Date Diagnosed: 09/24/2023 5:10 PM (K21.9) Not Available [facility] 4 02:22:20 Thyroglos kiel duct cyst 49740558 Active 2023 MANUEL FALCON MD [address] [place] [address],[place] [address], [place], [address] , [place] - [facility] 15:53:13 Problem Notes None recorded. Procedures Surgical History Date Name Laterality Status Provider Name and Address Organization Details Recorded Time 05/26/20 24 Fiberoptic Laryngoscopy (Comprehensive) completed MANUEL FALCON MD [address] [place] [address],[place] [address], [place], [address], [facility] - [facility] 05/27/2024 09:28:30 tonsillectomy completed MANUEL FALCON MD [address] [place] [address],[address], [address], [facility] - [facility] 05/26/2024 15:24:16 Imaging Results None recorded. Procedure Notes None recorded. Medical Equipment None Reported. Allergies No known drug allergies Medications Name Sig Start Date Stop Date Status Note LastModified by Organization Details LastModified Time azithromycin 250 mg tablet TAKE 2 TABLETS BY MOUTH ON DAY 1, THEN TAKE 1 TABLET DAILY ON DAYS 2-5 05/26 completed Not Available Not Available Not Available omeprazole 20 mg capsule,lisa yed release TAKE 1 CAPSULE BY MOUTH EVERY DAY IN THE MORNING ON AN EMPTY STOMACH 30 TO 60 MINUTES BEFORE EATING 05/26 completed Not Available Not Available Not Available fluticasone propionate 50 mcg/actuatio n nasal spray,suspen sarina INSTILL 1 SPRAY IN EACH NOSTRIL ONCE DAILY 05/26 completed Not Available Not Available Not Available prednisolone sodium phosphate 5 mg base/5 mL (6.7 mg/5 mL) oral soln TAKE 5 ML BY MOUTH TWICE DAILY 05/26 completed Not Available Not Available Not Available Vitals Date Recorded Body height Body mass index (BMI) Body weight Provider Name and Address Organization Details Last Updated DateTime 05/26/2024 182.88 cm 36.1 kg/m2 811371.37 g Bianca Birmingham [place] - [facility] 05/26/2024 15:41:01 Social History None recorded. Functional Status None recorded. Mental Status None recorded. Family History Nothing Reported. Medical History No medical history recorded. Past Encounters Encounter ID Performer Location Encounter Start Date Encounter Closed Date Diagnosis/Indication Diagnosis SNOMED-CT Code Diagnosis ICD10 Code Diagnosis Note [id number] MANUEL FALCON MD [facility] [address] [phone] 05/26/2024 15:22:49 05/29/2024 07:51:47 Thyroglossal duct cyst 51723805 Q89.2 Gastroesop hageal reflux disease without esophagitis 597743541 K21.9 Dysphonia 72612332 R49.0 Polyp of n linda cavity and/or nasal sinus 293873426 J33.9 Health Concerns Section Related Observation LastModified by Organization Detai ls LastModified Time None Recorded Concern Status LastModified by Organization Details LastModified Time None Recorded Advance Directives Directive None Recorded Payers Insurance Date Sequence Insurance Name Policy Number Policy [place] Covered Member ID [place] Member ID Guarantor Name 05/26/[address] [facility] [id number] Dominic Travis [id number] Dominic Fergusone 05/26/2024 2 [place] [employer] Dominic Travis [id number] Dominic Travis Notes Date Note Type Note Provider Name and Address Organization Details Recorded Time 05/26/2024 text/html Voice not improv ed. Did not end up proceeding with the the voice therapy. He had a upper GI exam over the summer showing moderate cricopharyngeal achalasia, small Zenker's diverticulum, mildly disorganized esophageal peristalsis, mild to moderate narrowing of the GE junction, moderate type I hiatal hernia with moderate GE reflux, mildly thickened appearance of the gastric rugal folds. Grinds teeth, no known JOSE. PV: 68-year-old With multiple ENT issues presents for follow-up after ultrasound. Ultrasound confirm cystic midline neck lesion measuring 2.1 x 1 x 2.4cm. 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 He is asymptomatic, the cyst is not palpable externally and on previous flexible fiber-opticlaryngoscop y was not visible. Will continue to monitor. Follow-up after repeat ultrasound in 5 to 6 months.Other issues are:1. 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 He is not been consistent with taking. I reiterated the importance of taking this. He is also welcome to try other interventionsin addition to omeprazole, as recommended by his homeopathic medicine provider such as aliginates.Is scheduled to start voice therapy in February.2. 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 CT scan with partial opacification of the maxillary sinuses, rightsphenoid and left anterior ethmoid cells. Right johan bullosa with polypoid mass emanating from the middle turbinates also noted. Nasal polyps do not bother himsignificantly. We again discussed that he may consider surgery in the future if he wishes to do so.He is not interested in surgery at this time. MANUEL FALCON MD [address] [place] [address], [place], [phone], [facility] - [facility] 05/27/2024 09:29:00
[2025-01-25 11:32] LABS: PSA,Total (Free>4and<10) 1.19 ng/mL (0.00-4.00)
== END 2025-01-25 10:26 | disposition home or self-care (01) ==
LOC: HO.LNP 10:25
PROVIDERS: Visit Provider Internal Medicine
DX: Z00.00 Encounter for general adult medical examination without abnormal findings (principal); N40.0 Benign prostatic hyperplasia without lower urinary tract symptoms; K76.9 Liver disease, unspecified
CPT/HCPCS: 80053; 80061; 81001; 84153; 85025